=== PATIENT | female | born 1945 | race Caucasian/White ===

== ENCOUNTER → 2024-08-24 15:03 | Outpatient (REF) | payer MEDICARE, SELFPAY ==
[2024-08-24 15:57] LABS: Vitamin D, 25-OH*** 55.4 ng/mL (30-80)
== END ==
LOC: OIDL 15:03
PROVIDERS: ATTENDING PHYSICIAN Internal Medicine Hematology & Oncology
DX: D50.9 Iron deficiency anemia, unspecified (principal); D51.8 Other vitamin B12 deficiency anemias; R53.82 Chronic fatigue, unspecified; E55.9 Vitamin D deficiency, unspecified
CPT/HCPCS: 82306

== ENCOUNTER → 2024-08-31 15:24 | Outpatient (REF) | payer MEDICARE, SELFPAY ==
[2024-08-31 15:27] LABS: % Basophils 0.2 % (0-2); % Eosinophils 2.9 % (0-6); % Immature Granulocytes 0.3 % (0-0.5); % Lymphocytes 20.7 % (20.5-51.1); % Monocytes 8.5 % (1.7-9.3); % Neutrophils 67.4 % (42.2-75.2); Absolute Eosinophils 0.2 10^3/uL (0-0.7); Absolute Lymphocytes 1.4 10^3/uL (1.2-3.4); Absolute Monocytes 0.6 10^3/uL (0.1-0.6); Absolute Neutrophils 4.4 10^3/uL (1.4-6.5); Hematocrit 39.5 % (37.0-47.0); Hemoglobin 12.8 g/dL (12.0-16.0); Mean Corp Hgb Conc. 32.4 g/dL (33.0-37.0); Mean Corpuscular Hgb 30.3 pg (27.0-31.0); Mean Corpuscular Volume 93.4 fL (81.0-99.0); Mean Platelet Volume 9.2 fL (7.4-10.4); Platelet Count 225 10^3/uL (130-400); Red Blood Cell Count 4.23 10^6/uL (4.20-5.40); Red Cell Dist. Width 13.3 % (11.5-14.5); White Blood Cell Count 6.6 10^3/uL (4.8-10.8)
[2024-08-31 16:19] LABS: Phosphorus 2.3 mg/dl (2.5-4.5)
== END ==
LOC: OIDL 15:24
PROVIDERS: ATTENDING PHYSICIAN Registered Nurse
DX: D50.9 Iron deficiency anemia, unspecified (principal); D51.8 Other vitamin B12 deficiency anemias; R53.82 Chronic fatigue, unspecified
CPT/HCPCS: 84100; 85025